=== PATIENT | female | born 1940 | race Caucasian/White ===

== ENCOUNTER → 2016-11-07 | Outpatient (RCR) ==
--- NOTE | 2016-10-09 16:00 | RS.OPPTEV2 ---
Date of Note: 10/09/16 Visit #: 1 Date of Evaluation: 10/09/16 Payer Source: MEDICARE Date of Onset/Injury/Change in Status: 08/04/16 Surgery Performed?: No Treatment Diagnosis: back pain History of Condition/Mechanism of Injury:: Patient states she has been having back pain since and had seen a chiropractor several times with very minimal relief. She was referred to a asset recovery specialist and then referred to PT. She states that Dr. Lehman gave her steroids which has helped significantly. She has just finished the steroids within a wk or so. Prior Level of Function.....Patient was independent with: ADL's, Self Care, Caregiving, Ambulation/Mobility, Community Integration/Access Functional Limitations: Sleep, ADL's, Lifting, Carrying, Sitting, Standing, Bending, Squatting, Ambulation, Community Access/Integration (stairs) Treatment Side (optional): Bilateral Medical History Medical History Comments:: arthritis, back pain, cerebrovascular disease, degeneration of intervertebral disc (site unspecified), depression, diverticulosis of colon, heart disease, high cholesterol, hypertension, hypothyroidism, neuropathy, osteoarthritis, restless leg syndrome, stress incontinence, thryoid nodule. Surgical History: Tonsillectomy Smoking Status: Never smoker Hx Home Medications: Please see medication list. Pain Assessment - Pain Description Pain Location: low back Pain Description: Chronic (Patient cannot describe her pain but states it just hurts.) Pain Description: Intermittent pain Current Pain Intensity: 5-6/10 Worst Pain Intensity: 10/10 Functional Outcome Measure Oswestry LBP: 30 (60% disability) - G Codes & Severity Modifier G Codes & Modifier: Mobility, Moving & Walking Around. Eval - CL. Goal - CK Source of G Code score: Oswestry LBP Scale Gait - Gait Pattern General Gait Pattern Observation: No Deviations/Normal General Muscle Strength: RLE 5/5 and LLE 4 - 4+/5 - ROM Lumbar Flexion: Hand reach to Mid-Thighs Sidebending to Left: Reach to Mid-thigh Sidebending to Right: Reach to Mid-thigh Palpation Palpation Findings: None/Normal Sensation - Sensation Sensation Description: Within Normal Limits Interventions - Exercise/Activities/Manual Therapy Exercises/Activities: NA Manual Therapy: NA - Charges Total Direct Minutes: 45 Total Treatment Time: 45 Procedures billed for this date of service:: PT Marthaal (Medium) Short Term Goals Goal #1: Patient independent and compliant with basic HEP. Goal to be met by: 10/24/16 Goal #2: Patient is able to negotiate steps with min difficulty Goal to be met by: 10/24/16 Goal #3: LLE strength 5/5 Goal to be met by: 10/24/16 Goal #4: Lumbar ROM WFLs w/o increased pain Goal to be met by: 10/24/16 Jail Goals Goal #1: Patient knows HEP and to continue exercises after D/C from therapy. Goal to be met by: 11/21/16 Goal #2: LBP intermittent in nature. Goal to be met by: 11/21/16 Goal #3: Patient is able to go shopping w/o lumbar fatigue. Goal to be met by: 11/21/16 Goal #4: Oswestry LBP Scale 20 Goal to be met by: 11/21/16 Plan - Treatment to be Provided Procedures: Therapeutic Exercises, Therapeutic Activity, Gait Training, Manual Therapy, Splinting/Taping, Patient Education Modalities: Electrical Stimulation, Ultrasound/Phonophoresis, Cryotherapy, Hot Packs - Treatment Plan Frequency: 2-3 X week Duration: 6 weeks ORDER # VISITS AND/OR THROUGH DATE: 11/21/2016 - Treatment Code (1) Back pain Qualifiers: Back pain location: low back pain Chronicity: chronic Back pain laterality: bilateral Sciatica presence: without sciatica Qualified Description: Chronic bilateral low back pain without sciatica Qualifier Code(s): (M54.5) Low back pain
--- NOTE | 2016-10-13 11:48 | RS.OPPTDN ---
Subjective Date of Note: 10/13/16 Visit #: 2 Date of Evaluation: 10/09/16 Payer Source: MEDICARE Treatment Diagnosis: back pain Current Subjective/complaints:: Patient points to just above the waist and slightly lower for area of pain. Reports bed mobility is difficult. She is hopeful treatment will help. Pain Assessment - Pain Description Pain Location: low back Pain Description: Chronic (Patient cannot describe her pain but states it just hurts.) Pain Description: Intermittent pain Current Pain Intensity: 5-6/10 - Treatment Modality: Electrical Stim Unattended Parameters/Method Applied: 4 large pads hivolt x 20 mins to the lumbar paraspinals @ 115-125 pk volts Patient Position: Supine - Heat/Cryotherapy Treatment: Hot Pack Interventions - Exercise/Activities/Manual Therapy Exercises/Activities: Began passive stretching of SKTC, HS, Piriformis, Lower trunk rotation. Bilaterally x 3. Patient education on diagnosis and HEP, body mechanics and positioning. Total minutes of Exercise: 12 Manual Therapy: NA HOME EXERCISE PROGRAM: self-mobilization of the patella medially, isometric hip adduction, HS stretch, and ITB stretch. Isometric hip adduction and bridging. - Charges Total Direct Minutes: 12 Total Treatment Time: 32 Procedures billed for this date of service:: hp, estim (un), ex Assessment: Patient presents with moderate LBP primarily at the waistline. She appeared to nicanor modality and therex well. She requires the need for assisted HS and SKTC stretching. Patient Education: Education of diagnosis, Body/Joint mechanics, Home Exercise Program, Home Safety, Activity Modification, Education of Plan of Care Patient demonstrates compliance with HEP?: Yes Short Term Goals Goal #1: Patient independent and compliant with basic HEP. Goal to be met by: 10/24/16 Goal #2: Patient is able to negotiate steps with min difficulty Goal to be met by: 10/24/16 Goal #3: LLE strength 5/5 Goal to be met by: 10/24/16 Goal #4: Lumbar ROM WFLs w/o increased pain Goal to be met by: 10/24/16 Plant Quality Manager Goals Goal #1: Patient knows HEP and to continue exercises after D/C from therapy. Goal to be met by: 11/21/16 Goal #2: LBP intermittent in nature. Goal to be met by: 11/21/16 Goal #3: Patient is able to go shopping w/o lumbar fatigue. Goal to be met by: 11/21/16 Goal #4: Oswestry LBP Scale 20 Goal to be met by: 11/21/16 Plan PLAN OF CARE EXPIRES ON:: 11/21/16 ORDER # VISITS AND/OR THROUGH DATE: 11/21/2016 PLAN: Continue Plan of Care
--- NOTE | 2016-10-15 10:20 | RS.OPPTDN ---
Subjective Date of Note: 10/15/16 Visit #: 3 Date of Evaluation: 10/09/16 Payer Source: MEDICARE Treatment Diagnosis: back pain Current Subjective/complaints:: Patient says she had some soreness after her last treatment she attributes to having to lift up and position for laying on hot pack. She says she is looking forward to today's session to reduce that soreness. Pain Assessment - Pain Description Pain Location: low back Pain Description: Chronic (Patient cannot describe her pain but states it just hurts.) Pain Description: Intermittent pain Current Pain Intensity: 5-6/10 - Treatment Modality: Electrical Stim Unattended Parameters/Method Applied: 4 large pads hivolt at the waistline @ 80-95 pk volts x 20 mins Patient Position: Supine - Heat/Cryotherapy Treatment: Hot Pack Interventions - Exercise/Activities/Manual Therapy Exercises/Activities: Continued with passive stretching of SKTC, HS, Piriformis , Lower trunk rotation. Bilaterally x 3. Began pillow squeezes and isometric hip abd x 10. Total minutes of Exercise: 14 Manual Therapy: NA HOME EXERCISE PROGRAM: self-mobilization of the patella medially, isometric hip adduction, HS stretch, and ITB stretch. Isometric hip adduction and bridging. - Charges Total Direct Minutes: 14 Total Treatment Time: 34 Procedures billed for this date of service:: hp, estim (un), ex Assessment: Patient had soreness to the low back and hips she felt was related to trying to position for hot pack last session. She had relief today from treatment. She had no difficulty performing trunk stability and should continue to progress. Patient Education: Education of diagnosis, Body/Joint mechanics, Home Exercise Program, Home Safety, Activity Modification, Education of Plan of Care Short Term Goals Goal #1: Patient independent and compliant with basic HEP. Goal to be met by: 10/24/16 Goal #2: Patient is able to negotiate steps with min difficulty Goal to be met by: 10/24/16 Goal #3: LLE strength 5/5 Goal to be met by: 10/24/16 Goal #4: Lumbar ROM WFLs w/o increased pain Goal to be met by: 10/24/16 Longterm Goals Goal #1: Patient knows HEP and to continue exercises after D/C from therapy. Goal to be met by: 11/21/16 Goal #2: LBP intermittent in nature. Goal to be met by: 11/21/16 Goal #3: Patient is able to go shopping w/o lumbar fatigue. Goal to be met by: 11/21/16 Goal #4: Oswestry LBP Scale 20 Goal to be met by: 11/21/16 Plan PLAN OF CARE EXPIRES ON:: 11/21/16 ORDER # VISITS AND/OR THROUGH DATE: 11/21/2016 PLAN: Progress Exercises
--- NOTE | 2016-10-20 10:54 | RS.OPPTDN ---
Subjective Date of Note: 10/20/16 Visit #: 4 Date of Evaluation: 10/09/16 Payer Source: MEDICARE Treatment Diagnosis: back pain Current Subjective/complaints:: Patient says she did not sleep well last night. She says she attributes it to time change. Says treatment seems to be helping her back. Pain Assessment - Pain Description Pain Location: low back Pain Description: Chronic (Patient cannot describe her pain but states it just hurts.) Pain Description: Intermittent pain Current Pain Intensity: 5-6/10 - Treatment Modality: Electrical Stim Unattended Parameters/Method Applied: 4 large pads hivolt @ 120-130 pk volts x 20 mins to lower lumbar paraspinals Patient Position: Supine - Heat/Cryotherapy Treatment: Hot Pack (mid to low back with estim) Interventions - Exercise/Activities/Manual Therapy Exercises/Activities: Continued with passive stretching of SKTC, HS, Piriformis , Lower trunk rotation. Bilaterally x 3. Continued with pillow squeezes and isometric hip abd x 10. Began isometric hip flexion and bridging. Total minutes of Exercise: 16 Manual Therapy: NA HOME EXERCISE PROGRAM: self-mobilization of the patella medially, isometric hip adduction, HS stretch, and ITB stretch. Isometric hip adduction and bridging. - Charges Total Direct Minutes: 16 Total Treatment Time: 36 Procedures billed for this date of service:: hp, estim (un), ex Assessment: Patient verbalizes slight improvement with back pain and appears to nicanor exercises in the department better. Short range bridge only due to increased range causes pain. Patient Education: Education of diagnosis, Body/Joint mechanics, Home Exercise Program, Home Safety, Activity Modification, Education of Plan of Care Patient demonstrates compliance with HEP?: Yes Short Term Goals Goal #1: Patient independent and compliant with basic HEP. Goal to be met by: 10/24/16 Progress towards Goal:: Progressing Comments:: as able Goal #2: Patient is able to negotiate steps with min difficulty Goal to be met by: 10/24/16 Goal #3: LLE strength 5/5 Goal to be met by: 10/24/16 Goal #4: Lumbar ROM WFLs w/o increased pain Goal to be met by: 10/24/16 Senior Care Goals Goal #1: Patient knows HEP and to continue exercises after D/C from therapy. Goal to be met by: 11/21/16 Goal #2: LBP intermittent in nature. Goal to be met by: 11/21/16 Goal #3: Patient is able to go shopping w/o lumbar fatigue. Goal to be met by: 11/21/16 Goal #4: Oswestry LBP Scale 20 Goal to be met by: 11/21/16 Plan PLAN OF CARE EXPIRES ON:: 11/21/16 ORDER # VISITS AND/OR THROUGH DATE: 11/21/2016 PLAN: Progress Exercises
--- NOTE | 2016-10-23 12:14 | RS.OPPTDN ---
Subjective Date of Note: 10/23/16 Visit #: 5 Date of Evaluation: 10/09/16 Payer Source: MEDICARE Treatment Diagnosis: back pain Current Subjective/complaints:: Patient says she cannot tell that pain is decreasing. She says she knows she has chronic back pain and will probably have to just deal with it. Pain Assessment - Pain Description Pain Location: low back Pain Description: Chronic (Patient cannot describe her pain but states it just hurts.) Pain Description: Intermittent pain Current Pain Intensity: 5-6/10 - Treatment Modality: Ultrasound Parameters/Method Applied: continuous @ 1.5 x 10 mins bilateral lumbar paraspinals Patient Position: Right Sidelying - Heat/Cryotherapy Treatment: Hot Pack (20 mins to the low and mid back in supine) Interventions - Exercise/Activities/Manual Therapy Exercises/Activities: Continued with passive stretching of SKTC, HS, Piriformis , Lower trunk rotation. Bilaterally x 3. Continued with pillow squeezes and isometric hip abd x 10. Continued with isometric hip flexion and bridging. Total minutes of Exercise: 16 Manual Therapy: NA HOME EXERCISE PROGRAM: self-mobilization of the patella medially, isometric hip adduction, HS stretch, and ITB stretch. Isometric hip adduction and bridging. - Charges Total Direct Minutes: 26 Total Treatment Time: 46 Procedures billed for this date of service:: hp, u/s, ex Assessment: Modified treatment from estim to u/s due to patient's continued c/ o. s. She demonstrates mod muscle guarding to the lumbar paraspinals. She has more pain with prolonged sitting than standing at this time. She appears to nicanor all therex well and shows improved HS length and less tenderness with piriformis stretching. Patient Education: Education of diagnosis, Body/Joint mechanics, Home Exercise Program, Home Safety, Activity Modification, Education of Plan of Care Patient demonstrates compliance with HEP?: Yes Short Term Goals Goal #1: Patient independent and compliant with basic HEP. Goal to be met by: 10/24/16 Progress towards Goal:: Progressing Goal #2: Patient is able to negotiate steps with min difficulty Goal to be met by: 10/24/16 Goal #3: LLE strength 5/5 Goal to be met by: 10/24/16 Goal #4: Lumbar ROM WFLs w/o increased pain Goal to be met by: 10/24/16 Shingle Grader Goals Goal #1: Patient knows HEP and to continue exercises after D/C from therapy. Goal to be met by: 11/21/16 Goal #2: LBP intermittent in nature. Goal to be met by: 11/21/16 Goal #3: Patient is able to go shopping w/o lumbar fatigue. Goal to be met by: 11/21/16 Goal #4: Oswestry LBP Scale 20 Goal to be met by: 11/21/16 Plan PLAN OF CARE EXPIRES ON:: 11/21/16 ORDER # VISITS AND/OR THROUGH DATE: 11/21/2016 PLAN: Continue Plan of Care (continue with u/s)
--- NOTE | 2016-10-27 11:02 | RS.OPPTDN ---
Subjective Date of Note: 10/27/16 Visit #: 7 Date of Evaluation: 10/09/16 Payer Source: MEDICARE Treatment Diagnosis: back pain Current Subjective/complaints:: Patient says she believes u/s is helping. She says her back pain has been less. Pain Assessment - Pain Description Pain Location: low back Pain Description: Chronic (Patient cannot describe her pain but states it just hurts.) Pain Description: Intermittent pain Current Pain Intensity: "less" - Treatment Modality: Ultrasound Parameters/Method Applied: continuous @ 1.5 w/cm2 x 12 mins to bilateral lumbar and lower thoracic paraspinals Patient Position: Right Sidelying - Heat/Cryotherapy Treatment: Hot Pack (mid to low back in supine x 20 mins) Interventions - Exercise/Activities/Manual Therapy Exercises/Activities: Continued with passive stretching of SKTC, HS, Piriformis , Lower trunk rotation. Bilaterally x 3. Continued with pillow squeezes and isometric hip abd 2 x 10. Continued with isometric hip flexion (increased to 2/ 10)and bridging x 10. Total minutes of Exercise: 16 Manual Therapy: NA HOME EXERCISE PROGRAM: self-mobilization of the patella medially, isometric hip adduction, HS stretch, and ITB stretch. Isometric hip adduction and bridging. - Charges Total Direct Minutes: 28 Total Treatment Time: 43 Procedures billed for this date of service:: hp, u/s, ex Assessment: Patient responding to u/s better than estim and verbalizing improved pain. She demo good flexibility now with all stretching and will now focus on trunk stability. Patient Education: Education of diagnosis, Body/Joint mechanics, Home Exercise Program, Home Safety, Activity Modification, Education of Plan of Care Patient demonstrates compliance with HEP?: Yes Short Term Goals Goal #1: Patient independent and compliant with basic HEP. Goal to be met by: 10/24/16 Progress towards Goal:: Progressing Goal #2: Patient is able to negotiate steps with min difficulty Goal to be met by: 10/24/16 Goal #3: LLE strength 5/5 Goal to be met by: 10/24/16 Goal #4: Lumbar ROM WFLs w/o increased pain Goal to be met by: 10/24/16 Zyglo Inspector Goals Goal #1: Patient knows HEP and to continue exercises after D/C from therapy. Goal to be met by: 11/21/16 Progress towards goal: Progressing Goal #2: LBP intermittent in nature. Goal to be met by: 11/21/16 Goal #3: Patient is able to go shopping w/o lumbar fatigue. Goal to be met by: 11/21/16 Goal #4: Oswestry LBP Scale 20 Goal to be met by: 11/21/16 Plan PLAN OF CARE EXPIRES ON:: 11/21/16 ORDER # VISITS AND/OR THROUGH DATE: 11/21/2016 PLAN: Progress Exercises
--- NOTE | 2016-10-27 11:05 | RS.OPPTDN ---
Subjective Date of Note: 10/24/16 Visit #: 6 Date of Evaluation: 10/09/16 Payer Source: MEDICARE Treatment Diagnosis: back pain Current Subjective/complaints:: Patient says her back pain is higher up her back now, but at the spine. She says she thinks the u/s helped more than the estim. Pain Assessment - Pain Description Pain Location: low back Pain Description: Chronic (Patient cannot describe her pain but states it just hurts.) Pain Description: Intermittent pain Current Pain Intensity: "less" - Treatment Modality: Ultrasound Parameters/Method Applied: continuous @ 1.5 w/cm2 x 10 mins to bilateral lumbar and lower thoracic paraspinals Patient Position: Right Sidelying - Heat/Cryotherapy Treatment: Hot Pack (mid to low back in supine x 20 mins) Interventions - Exercise/Activities/Manual Therapy Exercises/Activities: Continued with passive stretching of SKTC, HS, Piriformis , Lower trunk rotation. Bilaterally x 3. Continued with pillow squeezes and isometric hip abd 2 x 10. Continued with isometric hip flexion and bridging x 10. Total minutes of Exercise: 16 Manual Therapy: NA HOME EXERCISE PROGRAM: self-mobilization of the patella medially, isometric hip adduction, HS stretch, and ITB stretch. Isometric hip adduction and bridging. - Charges Total Direct Minutes: 26 Total Treatment Time: 41 Procedures billed for this date of service:: hp, u/s, ex Assessment: Patient doing well with reduced pain following u/s. She is able to nicanor stretching better, but does have discomfort with bridging. Patient Education: Education of diagnosis, Body/Joint mechanics, Home Exercise Program, Home Safety, Activity Modification, Education of Plan of Care Patient demonstrates compliance with HEP?: Yes Short Term Goals Goal #1: Patient independent and compliant with basic HEP. Goal to be met by: 10/24/16 Progress towards Goal:: Progressing Goal #2: Patient is able to negotiate steps with min difficulty Goal to be met by: 10/24/16 Progress towards Goal:: Progressing Goal #3: LLE strength 5/5 Goal to be met by: 10/24/16 Goal #4: Lumbar ROM WFLs w/o increased pain Goal to be met by: 10/24/16 Manager Ecommerce Goals Goal #1: Patient knows HEP and to continue exercises after D/C from therapy. Goal to be met by: 11/21/16 Goal #2: LBP intermittent in nature. Goal to be met by: 11/21/16 Goal #3: Patient is able to go shopping w/o lumbar fatigue. Goal to be met by: 11/21/16 Goal #4: Oswestry LBP Scale 20 Goal to be met by: 11/21/16 Plan PLAN OF CARE EXPIRES ON:: 11/21/16 ORDER # VISITS AND/OR THROUGH DATE: 11/21/2016 PLAN: Continue Plan of Care
--- NOTE | 2016-10-29 10:47 | RS.OPPTDN ---
Subjective Date of Note: 10/29/16 Visit #: 8 Date of Evaluation: 10/09/16 Payer Source: MEDICARE Treatment Diagnosis: back pain Current Subjective/complaints:: Patient says u/s has been helping quite well. She says she has been having less back pain lately. States she had a lot to do yesterday, but resting today. Pain Assessment - Pain Description Pain Location: low back Pain Description: Chronic (Patient cannot describe her pain but states it just hurts.) Pain Description: Intermittent pain Current Pain Intensity: "less" - Treatment Modality: Ultrasound Parameters/Method Applied: continuous @ 1.5 w/cm2 x 12 mins Treatment Area: bilateral lower thoracic and lumbar paraspinals Patient Position: Right Sidelying - Heat/Cryotherapy Treatment: Hot Pack (mid to low back in supine x 20 mins) Interventions - Exercise/Activities/Manual Therapy Exercises/Activities: Continued with passive stretching of SKTC, HS, Piriformis , Lower trunk rotation. Added Heel cord stretching x 3. Bilaterally x 3. Continued with pillow squeezes and isometric hip abd 2 x 15. Continued with isometric hip flexion x 10. Added pelvic tilts, but omitted bridging due to discomfort. Total minutes of Exercise: 20 Manual Therapy: NA HOME EXERCISE PROGRAM: self-mobilization of the patella medially, isometric hip adduction, HS stretch, and ITB stretch. Isometric hip adduction and bridging. - Charges Total Direct Minutes: 32 Total Treatment Time: 52 Procedures billed for this date of service:: hp, u/s, ex Assessment: Patient responding to u/s well with ability to perform more beet end supervisor with less irritation and fatigue. Patient Education: Education of diagnosis, Body/Joint mechanics, Home Exercise Program, Home Safety, Activity Modification, Education of Plan of Care Patient demonstrates compliance with HEP?: Yes Short Term Goals Goal #1: Patient independent and compliant with basic HEP. Goal to be met by: 10/24/16 Progress towards Goal:: Progressing Goal #2: Patient is able to negotiate steps with min difficulty Goal to be met by: 10/24/16 Progress towards Goal:: Progressing Goal #3: LLE strength 5/5 Goal to be met by: 10/24/16 Progress towards Goal:: Progressing Goal #4: Lumbar ROM WFLs w/o increased pain Goal to be met by: 10/24/16 Progress towards Goal:: Progressing Hotel General Manager Goals Goal #1: Patient knows HEP and to continue exercises after D/C from therapy. Goal to be met by: 11/21/16 Goal #2: LBP intermittent in nature. Goal to be met by: 11/21/16 Goal #3: Patient is able to go shopping w/o lumbar fatigue. Goal to be met by: 11/21/16 Goal #4: Oswestry LBP Scale 20 Goal to be met by: 11/21/16 Plan PLAN OF CARE EXPIRES ON:: 11/21/16 ORDER # VISITS AND/OR THROUGH DATE: 11/21/2016 PLAN: Progress Exercises
--- NOTE | 2016-11-03 11:06 | RS.OPPTDN ---
Subjective Date of Note: 10/31/16 Visit #: 9 Date of Evaluation: 10/09/16 Payer Source: MEDICARE Treatment Diagnosis: back pain Current Subjective/complaints:: Patient states she did increased activity over the weekend and was a little sore, but now only has slight soreness to the low back. She expresses feeling much relief following u/s. Pain Assessment - Pain Description Pain Location: low back Pain Description: Chronic (Patient cannot describe her pain but states it just hurts.) Pain Description: Intermittent pain Current Pain Intensity: "less" - Treatment Modality: Ultrasound Parameters/Method Applied: continuous @ 1.5 w/cm2 x 10 mins to bilateral lumbar paraspinals Patient Position: Right Sidelying - Heat/Cryotherapy Treatment: Hot Pack ( mid to low back in supine x 20 mins) Interventions - Exercise/Activities/Manual Therapy Exercises/Activities: Continued with passive stretching of SKTC, HS, Piriformis , Lower trunk rotation. Added Heel cord stretching x 3. Bilaterally x 3. Continued with pillow squeezes and isometric hip abd 2 x 15. Continued with isometric hip flexion x 10. Continued with pelvic tilts 2/10. SLR 2/8 bilaterally. Total minutes of Exercise: 17 Manual Therapy: NA HOME EXERCISE PROGRAM: self-mobilization of the patella medially, isometric hip adduction, HS stretch, and ITB stretch. Isometric hip adduction and bridging. - Objective Findings Observations,measurements,etc.: Oswestry LBP based on presentation and reports: 25 or 50% impairment - Charges Total Direct Minutes: 27 Total Treatment Time: 47 Procedures billed for this date of service:: hp, u/s, ex Assessment: Patient demonstrating norm HS length at this point and is ncianor progressive trunk stability. She does have difficulty nicanor bridging, so it continues to be omitted and performing more pelvic tilts. Patient Education: Education of diagnosis, Body/Joint mechanics, Home Exercise Program, Home Safety, Activity Modification, Education of Plan of Care Patient demonstrates compliance with HEP?: Yes Short Term Goals Goal #1: Patient independent and compliant with basic HEP. Goal to be met by: 10/24/16 Progress towards Goal:: Progressing Goal #2: Patient is able to negotiate steps with min difficulty Goal to be met by: 10/24/16 Progress towards Goal:: Progressing Goal #3: LLE strength 5/5 Goal to be met by: 10/24/16 Progress towards Goal:: Progressing Goal #4: Lumbar ROM WFLs w/o increased pain Goal to be met by: 10/24/16 Progress towards Goal:: Progressing Guest Relations Executive Goals Goal #1: Patient knows HEP and to continue exercises after D/C from therapy. Goal to be met by: 11/21/16 Goal #2: LBP intermittent in nature. Goal to be met by: 11/21/16 Goal #3: Patient is able to go shopping w/o lumbar fatigue. Goal to be met by: 11/21/16 Goal #4: Oswestry LBP Scale 20 Goal to be met by: 11/21/16 Plan PLAN OF CARE EXPIRES ON:: 11/21/16 ORDER # VISITS AND/OR THROUGH DATE: 11/21/2016 PLAN: Progress Exercises (continue x 2 more sessions per order)
--- NOTE | 2016-11-03 13:45 | RS.OPPTDN ---
Subjective Date of Note: 11/03/16 Visit #: 10 Date of Evaluation: 10/09/16 Payer Source: MEDICARE Treatment Diagnosis: back pain Current Subjective/complaints:: Patient says she is pleased at how therapy has been helping her back. She notices improved strength and ease with getting up off of the bed in the department and exercises are getting easier. Pain Assessment - Pain Description Pain Location: low back Pain Description: Chronic (Patient cannot describe her pain but states it just hurts.) Pain Description: Intermittent pain Current Pain Intensity: "less" - Treatment Modality: Ultrasound Parameters/Method Applied: continuous @ 1.5 w/cm2 x 10 mins to bilateral lumbar paraspinals Patient Position: Right Sidelying - Heat/Cryotherapy Treatment: Hot Pack (mid to low back in supine) Comments:: 20 mins Interventions - Exercise/Activities/Manual Therapy Exercises/Activities: Continued with passive stretching of SKTC, HS, Piriformis , Lower trunk rotation. Added Heel cord stretching x 3. Bilaterally x 3. Continued with pillow squeezes and isometric hip abd 2 x 15. Continued with isometric hip flexion 2 x 10. Continued with pelvic tilts 2/10. SLR 2/8 bilaterally. Omitted Bridging. Total minutes of Exercise: 17 Manual Therapy: NA HOME EXERCISE PROGRAM: self-mobilization of the patella medially, isometric hip adduction, HS stretch, and ITB stretch. Isometric hip adduction and bridging. - Objective Findings Observations,measurements,etc.: Oswestry LBP based on presentation and reports: 25 or 50% impairment - Charges Total Direct Minutes: 27 Total Treatment Time: 47 Procedures billed for this date of service:: hp, u/s, ex Assessment: Improved Oswestry Scale today for the 10th visit today meeting her goal. Patient Education: Education of diagnosis, Body/Joint mechanics, Home Exercise Program, Home Safety, Activity Modification, Education of Plan of Care Patient demonstrates compliance with HEP?: Yes Short Term Goals Goal #1: Patient independent and compliant with basic HEP. Goal to be met by: 10/24/16 Progress towards Goal:: Met Goal #2: Patient is able to negotiate steps with min difficulty Goal to be met by: 10/24/16 Progress towards Goal:: Met Goal #3: LLE strength 5/5 Goal to be met by: 10/24/16 Progress towards Goal:: Progressing Goal #4: Lumbar ROM WFLs w/o increased pain Goal to be met by: 10/24/16 Progress towards Goal:: Progressing Knowledge Management Consultant Goals Goal #1: Patient knows HEP and to continue exercises after D/C from therapy. Goal to be met by: 11/21/16 Goal #2: LBP intermittent in nature. Goal to be met by: 11/21/16 Goal #3: Patient is able to go shopping w/o lumbar fatigue. Goal to be met by: 11/21/16 Goal #4: Oswestry LBP Scale 20 Goal to be met by: 11/21/16 Plan PLAN OF CARE EXPIRES ON:: 11/21/16 ORDER # VISITS AND/OR THROUGH DATE: 11/21/2016 PLAN: Progress Exercises (continue this week, then plan for d/c with encouragement to consistently perform HEP)
--- NOTE | 2016-11-05 15:19 | RS.OPPTDN ---
Subjective Date of Note: 11/05/16 Visit #: 11 Date of Evaluation: 10/09/16 Payer Source: MEDICARE Treatment Diagnosis: back pain Current Subjective/complaints:: Patient c/o being tired today. Says she is able to see improved strength to her legs with walking up/down her 4 steps. Pain Assessment - Pain Description Pain Location: low back. "tired" Pain Description: Chronic (Patient cannot describe her pain but states it just hurts.) Pain Description: Intermittent pain Current Pain Intensity: "less" - Treatment Modality: Ultrasound Parameters/Method Applied: continuous @ 1.5 w/cm2 x 12 mins to bilateral lumbar paraspinals and lower thoracic paraspinals Patient Position: Supine - Heat/Cryotherapy Treatment: Hot Pack (mid to low back in supine x 20 mins) Interventions - Exercise/Activities/Manual Therapy Exercises/Activities: Continued with trunk stability of pillow squeezes and isometric hip abd 2 x 15. Continued with isometric hip flexion 2 x 10. QS 2x10. Continued with pelvic tilts 2/10. SLR 2/8 bilaterally. Omitted Bridging. Total minutes of Exercise: 15 Manual Therapy: NA HOME EXERCISE PROGRAM: self-mobilization of the patella medially, isometric hip adduction, HS stretch, and ITB stretch. Isometric hip adduction and bridging. - Charges Total Direct Minutes: 27 Total Treatment Time: 47 Procedures billed for this date of service:: hp u/s, ex Assessment: Patient verbalizing improved ability to ascend/descend steps and general back pain, but remains overall fatigued. Patient's daughter had surgery yesterday and spent much time at the hospital. Patient Education: Education of diagnosis, Body/Joint mechanics, Home Exercise Program, Home Safety, Activity Modification, Education of Plan of Care Patient demonstrates compliance with HEP?: Yes Short Term Goals Goal #1: Patient independent and compliant with basic HEP. Goal to be met by: 10/24/16 Progress towards Goal:: Met Goal #2: Patient is able to negotiate steps with min difficulty Goal to be met by: 10/24/16 Progress towards Goal:: Met Goal #3: LLE strength 5/5 Goal to be met by: 10/24/16 Progress towards Goal:: Progressing Goal #4: Lumbar ROM WFLs w/o increased pain Goal to be met by: 10/24/16 Progress towards Goal:: Progressing Finished Metal Repairer Goals Goal #1: Patient knows HEP and to continue exercises after D/C from therapy. Goal to be met by: 11/21/16 Progress towards goal: Progressing Goal #2: LBP intermittent in nature. Goal to be met by: 11/21/16 Progress towards goal: Progressing Goal #3: Patient is able to go shopping w/o lumbar fatigue. Goal to be met by: 11/21/16 Goal #4: Oswestry LBP Scale 20 Goal to be met by: 11/21/16 Plan PLAN OF CARE EXPIRES ON:: 11/21/16 ORDER # VISITS AND/OR THROUGH DATE: 11/21/2016 PLAN: Progress Exercises (continue one more session per order)
--- NOTE | 2016-11-06 10:32 | RS.PTSUM ---
Progress Note/Summary Date of Note: 11/06/16 Date of Evaluation: 10/09/16 Number of Visits: 10 Reporting Period for this Progress Note: 10/09/16 through 11/03/16 Current Complaints/Gains: Patient reports mild LBP. She does often state her pain is chronic, but she states therapy treatment has helped her greatly. She reports less stiffness with exercises and states she is performing her exercises at home. Objective Measurements/Presentation: Demonstrates optimal HS and piriforms length. She has been able to progress stability exercises. She has shown difficulty with bridging. G Codes: Mobility current CK. Mobility goal CK Source of G Code Score: 50% on Oswestry LBP - Short Term Goals Goal #1: Patient independent and compliant with basic HEP. Goal to be met by: 10/24/16 Progress towards Goal:: Met Goal #2: Patient is able to negotiate steps with min difficulty Goal to be met by: 10/24/16 Progress towards Goal:: Met Goal #3: LLE strength 5/5 Goal to be met by: 10/24/16 Progress towards Goal:: Progressing Goal #4: Lumbar ROM WFLs w/o increased pain Goal to be met by: 10/24/16 Progress towards Goal:: Progressing - Assisted Goals Goal #1: Patient knows HEP and to continue exercises after D/C from therapy. Goal to be met by: 11/21/16 Progress towards goal: Progressing Goal #2: LBP intermittent in nature. Goal to be met by: 11/21/16 Progress towards goal: Progressing Goal #3: Patient is able to go shopping w/o lumbar fatigue. Goal to be met by: 11/21/16 Progress towards goal: Progressing Goal #4: Oswestry LBP Scale 20 Goal to be met by: 11/21/16 - Assessment Summary: Patient has made progress towards goals., Patient demonstrates potential to gain increased function with therapy - Plan Plan: Continue Plan of Care PLAN OF CARE EXPIRES ON:: 11/21/16 ORDER # VISITS AND/OR THROUGH DATE: 11/21/2016
--- NOTE | 2016-11-07 15:20 | RS.OPPTDN ---
Subjective Date of Note: 11/07/16 Visit #: 12 Date of Evaluation: 10/09/16 Payer Source: MEDICARE Treatment Diagnosis: back pain Current Subjective/complaints:: Patient says she is pleased at how well she is feeling and believes she will get better with performing her exercises more at home. Pain Assessment - Pain Description Pain Location: low back. "tired" Pain Description: Chronic (Patient cannot describe her pain but states it just hurts.) Pain Description: Intermittent pain Current Pain Intensity: "less" - Treatment Modality: Ultrasound Parameters/Method Applied: continuous @ 1.5 w/cm2 x 10 mins to the L lower thoracic and lumbar paraspinals Patient Position: Right Sidelying - Heat/Cryotherapy Treatment: Hot Pack (20 mins mid to low back in supine) Interventions - Exercise/Activities/Manual Therapy Exercises/Activities: Continued with trunk stability of pillow squeezes and isometric hip abd 2 x 15. Continued with isometric hip flexion 2 x 10. QS 2x10. Alternate LE lift with 2# each leg, SAQ 2#. Continued with pelvic tilts 2/10. SLR 2/8 bilaterally. Total minutes of Exercise: 22 Manual Therapy: NA HOME EXERCISE PROGRAM: self-mobilization of the patella medially, isometric hip adduction, HS stretch, and ITB stretch. Isometric hip adduction and bridging. - Charges Total Direct Minutes: 32 Total Treatment Time: 52 Procedures billed for this date of service:: hp, u/s, ex Assessment: Patient has made acceptable progress with reducing low back pain. She is aware she needs to be consistent with HEP and may simulate our sessions with heating pad and stretching at home while progressing with trunk stability. She has met her goal per Oswestry Scale and admits improved sleep pattern and rising from bed/chair. Patient Education: Education of diagnosis, Body/Joint mechanics, Home Exercise Program, Home Safety, Activity Modification, Education of Plan of Care Patient demonstrates compliance with HEP?: Yes Short Term Goals Goal #1: Patient independent and compliant with basic HEP. Goal to be met by: 10/24/16 Progress towards Goal:: Met Goal #2: Patient is able to negotiate steps with min difficulty Goal to be met by: 10/24/16 Progress towards Goal:: Met Goal #3: LLE strength 5/5 Goal to be met by: 10/24/16 Progress towards Goal:: Progressing Goal #4: Lumbar ROM WFLs w/o increased pain Goal to be met by: 10/24/16 Progress towards Goal:: Progressing Correction Goals Goal #1: Patient knows HEP and to continue exercises after D/C from therapy. Goal to be met by: 11/21/16 Progress towards goal: Met Goal #2: LBP intermittent in nature. Goal to be met by: 11/21/16 Progress towards goal: Met Goal #3: Patient is able to go shopping w/o lumbar fatigue. Goal to be met by: 11/21/16 Progress towards goal: Progressing Goal #4: Oswestry LBP Scale 20 Goal to be met by: 11/21/16 Progress towards goal: Partially Met (did not meet the score of 20, but 25 and met the goal of CK category) Plan PLAN OF CARE EXPIRES ON:: 11/21/16 ORDER # VISITS AND/OR THROUGH DATE: 11/21/2016 PLAN: Plan for Discharge
--- NOTE | 2016-11-28 10:17 | RS.QUICKDC ---
Discharge from PT Date of Discharge: 11/28/16 Number of Visits: 12 Reason for Discharge: Patient had completed original order for PT x 12 visits using moist heat, u/s, and therex including passive stretching and progressive trunk stability. She reported less back pain and increased strength to the LE' s as well as noticable improvement with ambulation. It was recommended upon 10th visit by our PT to complete final 2 sessions and perform HEP due to progress. See daily notes for specific treatment.
== END ==
PROVIDERS: ATTEND Orthopaedic Surgery Orthopaedic Surgery of the Spine
DX: M54.5 Low back pain (principal)

== ENCOUNTER → 2017-02-28 | Outpatient (CLI) | LOC: AMBL 14:44 | PROVIDERS: ATTEND Emergency Medicine | DX: R42 Dizziness and giddiness (principal); R11.2 Nausea with vomiting, unspecified; Z86.73 Personal history of transient ischemic attack (TIA), and cerebral infarction without residual deficits ==

== ENCOUNTER 2017-12-07 09:15 | Outpatient (RCR) ==
--- NOTE | 2017-11-17 08:26 | RS.OPPTEV2 ---
Date of Note: 11/16/17 Visit #: 1 Date of Evaluation: 11/16/17 Payer Source: MEDICARE Date of Onset/Injury/Change in Status: 08/18/17 Surgery Performed?: No Treatment Diagnosis: fx fibula, L ankle pain History of Condition/Mechanism of Injury:: pt states that problem began with fall on front porch injuring L ankle. Prior Level of Function.....Patient was independent with: ADL's, Self Care, Caregiving, Ambulation/Mobility, Community Integration/Access Functional Limitations: Sleep, ADL's, Lifting, Carrying, Standing, Bending, Squatting, Ambulation, Community Access/Integration (stairs) Current Subjective/complaints:: pt states L ankle continues to swell. States that she had been wearing a boot and MD 2 weeks ago changed her over to an ankle support brace. pt states that the brace will not fit inside her shoe however is more comfortable than the boot. Treatment Side (optional): Left Medical History Medical History: Hypertension, CVA/TIA, Arthritis Medical History Comments:: back pain, degeneration of intervertebral disc (site unspecified), depression, diverticulosis of colon, heart disease, high cholesterol, hypothyroidism, neuropathy, restless leg syndrome, stress incontinence, thryoid nodule. Surgical History: Tonsillectomy Smoking Status: Never smoker Hx Home Medications: Please see medication list. Patient's Goals: pt goal is to decrease pain Pain Assessment - Pain Description Pain Location: L ankle Pain Description: Aching Current Pain Intensity: 4/10 Functional Outcome Measure LE Functional Scale: 21 (74%) - G Codes & Severity Modifier G Codes & Modifier: mobility current CL. mobility goal CJ Source of G Code score: LE functional scale Observation - Observation Posture: Forward Head, Rounded Shoulders Handedness: Right Girth Measurement Lower: L ankle 22.5 cm R ankle 20.5cm. forefoot 20.7cm forefoot 20.4cm. 10 cm above ankle 22cm 10 cm above ankle 22cm Gait - Gait Pattern General Gait Pattern Observation: Antalgic Gait Gait Comments: pt amb with antalgic gait pattern with decreased stance time on LLE General Range of Motion: BUE wfL's. BLE hip /knee WFL's Muscle Strength: BUE 4+/5,. BLE except ankle 4+/5 - Left Ankle ROM Left DF with Knee extension: -8 Left Plantar Flexion: 24 Left Eversion: 18 Left Inversion: 24 Left Ankle/Foot ROM Limitations: Soft Tissue Tightness, Muscle Weakness, Pain - Right Ankle ROM Right DF with Knee extension: 6 Right Plantarflexion: 60 Right Eversion: 32 Right Inversion: 22 Right Ankle/Foot ROM Limitations: Soft Tissue Tightness, Muscle Weakness - Left Ankle Strength Left Dorsiflexion: 3- Fair- Left Plantar flexion: 3- Fair- Left Eversion: 3 Fair Left Inversion: 3 Fair - Right Ankle Strength Right Dorsiflexion: 3+ Fair+ Right Plantarflexion: 4 Good Right Eversion: 4 Good Right Inversion: 4 Good Palpation Palpation Findings: Tenderness Comments:: tenderness noted to palpation L proximal, lateral ankle Sensation - Sensation Right Upper Extremity: Intact/Normal Left Upper Extremity: Intact/Normal Right Lower Extremity: Intact/Normal Left Lower Extremity: Intact/Normal Balance - Sitting Balance Static Sitting Balance: Normal Dynamic Sitting Balance: Normal - Standing Balance Static Standing Balance: Good Dynamic Standing Balance: Good - Comments Balance Assessment Comments: pt with no LOB with gait, or with min challenges to balance. - Heat/Cryotherapy Treatment: Cryotherapy Comments:: L ankle Interventions - Exercise/Activities/Manual Therapy Exercises/Activities: pt performed DF, PF, inversion, eversion with L ankle with red theraband x 10 reps. Manual Therapy: NA HOME EXERCISE PROGRAM: pt given written HEP including: DF, PF, Inversion, Eversion with red theraband, ankle alphabet, towel curls and instructed to Ice L ankle - Charges Timed Code Treatment Minutes: 45 Total Treatment Time: 58 Procedures billed for this date of service:: eval low, cp EVALUATION COMPLEXITY LEVEL EVALUATION COMPLEXITY LEVEL: HISTORY: Medium (htn, cva, oa, L fibular fx), EXAM OF BODY SYSTEMS: Low (pain, edema, strength, ROM, ), CLINICAL PRESENTATION: Low (stable), CLINICAL DECISION MAKING: Low Assessment Assessment: pt presents with decreased ROM L ankle, decreased strength, edema, pain. pt presents with antalgic gait. Feel pt would benefit from skilled PT for therex for LE strengthening, ROM, pt education, to improve gait pattern and functional mobility Patient Education: Home Exercise Program, Education of Plan of Care Rehab Potential: Good Short Term Goals Goal #1: pt rate pain <4 with activity Goal to be met by: 12/07/17 Goal #2: Improved L ankle ROM DF to neutral, PF 38, Inversion 20, [id number] Goal to be met by: 12/07/17 Goal #3: pt amb in dept with improved heel strike, decreased antalgic gait pattern. Goal to be met by: 12/07/17 Goal #4: Decreased edema L ankle equal to R LE Goal to be met by: 12/07/17 Vice President Mission Integration Goals Goal #1: Independent with HEP Goal to be met by: 12/28/17 Goal #2: pt rate pain <2 with activity Goal to be met by: 12/28/17 Goal #3: pt amb community distances with no LOB with decreased antalgic gait Goal to be met by: 12/28/17 Goal #4: Improved LE functional scale 40 Goal to be met by: 12/28/17 Plan - Treatment to be Provided Procedures: Therapeutic Exercises, Therapeutic Activity, Gait Training, Manual Therapy, Splinting/Taping, Patient Education Modalities: Electrical Stimulation, Cryotherapy, Hot Packs - Treatment Plan Frequency: 3 X week Duration: 6 weeks ORDER # VISITS AND/OR THROUGH DATE: 12/28/17 - Treatment Code (1) Other fracture of upper and lower end of left fibula, subsequent encounter for closed fracture with routine healing Code(s): S82.832D - OTH FX UPR & LOW END L FIBULA, SUBS FOR CLOS FX W ROUTN HEAL (2) Left ankle pain Code(s): M25.572 - PAIN IN LEFT ANKLE AND JOINTS OF LEFT FOOT Qualifiers: Chronicity: chronic Qualified Code(s): M25.572 - Pain in left ankle and joints of left foot; G89.29 - Other chronic pain; G89.29 - Other chronic pain (3) Effusion of ankle joint, left Code(s): M25.472 - EFFUSION, LEFT ANKLE (4) Joint stiffness of ankle or foot Code(s): [id number] -
--- NOTE | 2017-11-18 11:50 | RS.OPPTDN ---
Subjective Date of Note: 11/18/17 Visit #: 2 Date of Evaluation: 11/16/17 Payer Source: MEDICARE Treatment Diagnosis: fx fibula, L ankle pain Current Subjective/complaints:: Patient says feels she has a little more flexibility since eval. She says she has been using ice and working on HEP. Pain Assessment - Pain Description Pain Location: Does not rate, but says pain seems to be reducing - Heat/Cryotherapy Treatment: Cryotherapy (15 mins to the L foot/ankle in elevated position after therex) Interventions - Exercise/Activities/Manual Therapy Exercises/Activities: Patient receives PROM for the L ankle all positions. Began manual isometrics 2x5 all dir. Continued with red tband all dir x 10 reps. Patient sits at EOB to work on True [employer] board multiple reps mainly focusing on DF/PF. Patient is performing HEP consistently. Total minutes of Exercise: 25 Manual Therapy: NA HOME EXERCISE PROGRAM: pt given written HEP including: DF, PF, Inversion, Eversion with red theraband, ankle alphabet, towel curls and instructed to Ice L ankle - Charges Timed Code Treatment Minutes: 25 Total Treatment Time: 40 Procedures billed for this date of service:: cp, ex2 Assessment: Patient admits improved ROM and better ease with all therex and HEP today. She demo good resistance with all isometrics today. She should benefit from continuing therapy for modalities if needed, but focus on therex to increase ROM and improve strength and stability of the L ankle joint. Patient Education: Education of diagnosis, Body/Joint mechanics, Home Exercise Program, Education of Plan of Care Patient demonstrates compliance with HEP?: Yes Short Term Goals Goal #1: pt rate pain <4 with activity Goal to be met by: 12/07/17 Progress towards Goal:: Progressing Goal #2: Improved L ankle ROM DF to neutral, PF 38, Inversion 20, [id number] Goal to be met by: 12/07/17 Progress towards Goal:: Progressing Goal #3: pt amb in dept with improved heel strike, decreased antalgic gait pattern. Goal to be met by: 12/07/17 Progress towards Goal:: Progressing Goal #4: Decreased edema L ankle equal to R LE Goal to be met by: 12/07/17 Prison Goals Goal #1: Independent with HEP Goal to be met by: 12/28/17 Goal #2: pt rate pain <2 with activity Goal to be met by: 12/28/17 Goal #3: pt amb community distances with no LOB with decreased antalgic gait Goal to be met by: 12/28/17 Goal #4: Improved LE functional scale 40 Goal to be met by: 12/28/17 Plan PLAN OF CARE EXPIRES ON:: 12/28/17 ORDER # VISITS AND/OR THROUGH DATE: 12/28/17 PLAN: Patient to continue 2-3 times per week for mobility and strength to the L ankle progressing to gait improvement.
--- NOTE | 2017-11-23 16:15 | RS.OPPTDN ---
Subjective Date of Note: 11/23/17 Visit #: 4 Date of Evaluation: 11/16/17 Payer Source: MEDICARE Treatment Diagnosis: fx fibula, L ankle pain Current Subjective/complaints:: Patient says the cold air has stiffened her ankle, but still seems to be improving. Reports not feeling well today and has been also taking care of her who has been down over the weekend. - Heat/Cryotherapy Treatment: Hot Pack (surrounding the L ankle in supine) Interventions - Exercise/Activities/Manual Therapy Exercises/Activities: Patient receives PROM for the L ankle all positions. Continued with manual isometrics 2x5 all dir. Continued with red tband all dir 2x 10 reps. Patient sits at EOB to work on wobble board multiple reps mainly focusing on DF/PF. Forward step board with instruction for proper sequencing x 5. Ramírez air pad for weight shift A/P and lateral x 10. Minisquat on level floor x 5. Patient is performing HEP consistently. Total minutes of Exercise: 26 Manual Therapy: NA HOME EXERCISE PROGRAM: pt given written HEP including: DF, PF, Inversion, Eversion with red theraband, ankle alphabet, towel curls and instructed to Ice L ankle - Charges Timed Code Treatment Minutes: 26 Total Treatment Time: 41 Procedures billed for this date of service:: hp, ex2 Assessment: Patient had difficulty stepping up on step board and altered surface today as she had 3-4 LOB and required assistance to maintain or correct bal. DF has increased by ~4-5 degrees since eval. Patient is compliant with HEP at this time and continues to progress with all therex otherwise. Patient Education: Home Safety, Education of Plan of Care Patient demonstrates compliance with HEP?: Yes Short Term Goals Goal #1: pt rate pain <4 with activity Goal to be met by: 12/07/17 Progress towards Goal:: Progressing Goal #2: Improved L ankle ROM DF to neutral, PF 38, Inversion 20, [id number] Goal to be met by: 12/07/17 Progress towards Goal:: Progressing Goal #3: pt amb in dept with improved heel strike, decreased antalgic gait pattern. Goal to be met by: 12/07/17 Progress towards Goal:: Progressing Goal #4: Decreased edema L ankle equal to R LE Goal to be met by: 12/07/17 Pc Support Specialist Goals Goal #1: Independent with HEP Goal to be met by: 12/28/17 Goal #2: pt rate pain <2 with activity Goal to be met by: 12/28/17 Goal #3: pt amb community distances with no LOB with decreased antalgic gait Goal to be met by: 12/28/17 Goal #4: Improved LE functional scale 40 Goal to be met by: 12/28/17 Plan PLAN OF CARE EXPIRES ON:: 12/28/17 ORDER # VISITS AND/OR THROUGH DATE: 12/28/17 PLAN: Patient to continue with therex to strengthen L LE and provide more stable bal/gt.
--- NOTE | 2017-11-23 16:21 | RS.OPPTDN ---
Subjective Date of Note: 11/20/17 Visit #: 3 Date of Evaluation: 11/16/17 Payer Source: MEDICARE Treatment Diagnosis: fx fibula, L ankle pain Current Subjective/complaints:: Patient continues to work on HEP and pleased with progress of reduced pain and strength nicanor increasing. Interventions - Exercise/Activities/Manual Therapy Exercises/Activities: Patient receives PROM for the L ankle all positions. Began manual isometrics 2x5 all dir. Continued with red tband all dir x 10 reps. Patient sits at EOB to work on [employer] multiple reps mainly focusing on DF/PF. Mrs. Nation works on side stepping at railing, minisquats, and forward step ups x 10. She stands and weight shifts A/P and laterally on parsons air pad. Patient is performing HEP consistently. Total minutes of Exercise: 30 Manual Therapy: NA HOME EXERCISE PROGRAM: pt given written HEP including: DF, PF, Inversion, Eversion with red theraband, ankle alphabet, towel curls and instructed to Ice L ankle - Charges Timed Code Treatment Minutes: 30 Total Treatment Time: 30 Procedures billed for this date of service:: ex2 Patient Education: Home Exercise Program, Education of Plan of Care Patient demonstrates compliance with HEP?: Yes Short Term Goals Goal #1: pt rate pain <4 with activity Goal to be met by: 12/07/17 Progress towards Goal:: Progressing Goal #2: Improved L ankle ROM DF to neutral, PF 38, Inversion 20, [id number] Goal to be met by: 12/07/17 Progress towards Goal:: Progressing Goal #3: pt amb in dept with improved heel strike, decreased antalgic gait pattern. Goal to be met by: 12/07/17 Progress towards Goal:: Progressing Goal #4: Decreased edema L ankle equal to R LE Goal to be met by: 12/07/17 Buying Agent Goals Goal #1: Independent with HEP Goal to be met by: 12/28/17 Goal #2: pt rate pain <2 with activity Goal to be met by: 12/28/17 Goal #3: pt amb community distances with no LOB with decreased antalgic gait Goal to be met by: 12/28/17 Goal #4: Improved LE functional scale 40 Goal to be met by: 12/28/17 Plan PLAN OF CARE EXPIRES ON:: 12/28/17 ORDER # VISITS AND/OR THROUGH DATE: 12/28/17 PLAN: Patient to continue for progressive therex.
--- NOTE | 2017-11-25 13:35 | RS.OPPTDN ---
Subjective Date of Note: 11/25/17 Visit #: 5 Date of Evaluation: 11/16/17 Payer Source: MEDICARE Treatment Diagnosis: fx fibula, L ankle pain Current Subjective/complaints:: Patient says she is feeling better, less congested, thus bal is better. She reports less pain and improved ability to perform therex at home. - Heat/Cryotherapy Treatment: Hot Pack (surrounding the L foot x 15 mins) Interventions - Exercise/Activities/Manual Therapy Exercises/Activities: Patient receives PROM for the L ankle all positions. Continued with manual isometrics 2x5 all dir. Continued with red tband all dir x 10 reps. Patient sits at EOB to work on [employer] board multiple reps mainly focusing on DF/PF. Mrs. Nation works on side stepping at railing, minisquats, heel raises, and forward step ups x 10. Bal is much better today as congestion and allergies have improved (while performing step ups). Total minutes of Exercise: 25 Manual Therapy: NA HOME EXERCISE PROGRAM: pt given written HEP including: DF, PF, Inversion, Eversion with red theraband, ankle alphabet, towel curls and instructed to Ice L ankle - Charges Timed Code Treatment Minutes: 25 Total Treatment Time: 40 Procedures billed for this date of service:: ex2, hp Assessment: Patient having less L ankle pain and improved nicanor to progressive exercises. She maintains use of lace up brace support and demo improved bal with all therex today. Patient Education: Body/Joint mechanics, Home Safety, Education of Plan of Care Patient demonstrates compliance with HEP?: Yes Short Term Goals Goal #1: pt rate pain <4 with activity Goal to be met by: 12/07/17 Progress towards Goal:: Progressing Goal #2: Improved L ankle ROM DF to neutral, PF 38, Inversion 20, [id number] Goal to be met by: 12/07/17 Progress towards Goal:: Progressing Goal #3: pt amb in dept with improved heel strike, decreased antalgic gait pattern. Goal to be met by: 12/07/17 Progress towards Goal:: Progressing Goal #4: Decreased edema L ankle equal to R LE Goal to be met by: 12/07/17 Pit Operator Goals Goal #1: Independent with HEP Goal to be met by: 12/28/17 Goal #2: pt rate pain <2 with activity Goal to be met by: 12/28/17 Goal #3: pt amb community distances with no LOB with decreased antalgic gait Goal to be met by: 12/28/17 Goal #4: Improved LE functional scale 40 Goal to be met by: 12/28/17 Plan PLAN OF CARE EXPIRES ON:: 12/28/17 ORDER # VISITS AND/OR THROUGH DATE: 12/28/17 PLAN: Continue for progressive therex
--- NOTE | 2017-11-27 15:51 | RS.OPPTDN ---
Subjective Date of Note: 11/27/17 Visit #: 6 Date of Evaluation: 11/16/17 Payer Source: MEDICARE Treatment Diagnosis: fx fibula, L ankle pain Current Subjective/complaints:: Patient says she overdid it with housecleaning yesterday. She says her daughter will help her later with the larger tasks. She says she left home and forgot her lace up brace today. Interventions - Exercise/Activities/Manual Therapy Exercises/Activities: Patient receives PROM for the L ankle all positions. Continued with manual isometrics 2x5 all dir. Continued with red tband all dir x 10 reps. Patient sits at EOB to work on [employer] board multiple reps mainly focusing on DF/PF. Avoided standing dynamic exercises due to no brace and increased pain from yesterday cleaning. 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 Patient left her brace at home and did not feel comfortable performing dynamic activity without it today. Patient Education: Activity Modification Patient demonstrates compliance with HEP?: Yes Short Term Goals Goal #1: pt rate pain <4 with activity Goal to be met by: 12/07/17 Progress towards Goal:: Progressing Goal #2: Improved L ankle ROM DF to neutral, PF 38, Inversion 20, [id number] Goal to be met by: 12/07/17 Progress towards Goal:: Progressing Goal #3: pt amb in dept with improved heel strike, decreased antalgic gait pattern. Goal to be met by: 12/07/17 Progress towards Goal:: Progressing Goal #4: Decreased edema L ankle equal to R LE Goal to be met by: 12/07/17 Turn Sewer Goals Goal #1: Independent with HEP Goal to be met by: 12/28/17 Goal #2: pt rate pain <2 with activity Goal to be met by: 12/28/17 Goal #3: pt amb community distances with no LOB with decreased antalgic gait Goal to be met by: 12/28/17 Goal #4: Improved LE functional scale 40 Goal to be met by: 12/28/17 Plan PLAN OF CARE EXPIRES ON:: 12/28/17 ORDER # VISITS AND/OR THROUGH DATE: 12/28/17 PLAN: Patient to continue towards progressive exercises.
--- NOTE | 2017-11-30 09:40 | RS.OPPTDN ---
Subjective Date of Note: 11/30/17 Visit #: 7 Date of Evaluation: 11/16/17 Payer Source: MEDICARE Treatment Diagnosis: fx fibula, L ankle pain Current Subjective/complaints:: Patient says her ankle is getting better and wants to attend as much as she can to restore strength, but also does not want to use all of her visits early in the year (per Medicare). She reports she is performing HEP and will return to MD today. Interventions - Exercise/Activities/Manual Therapy Exercises/Activities: Patient receives PROM for the L ankle all positions. Continued with manual isometrics 2x10 all dir. Continued progressive tband to green all dir x 10 reps. SAQ 2# and QS 2x10, bilateral IV with ball 2x10. Patient sits at EOB to work on [employer] [place] board multiple reps mainly focusing on DF/ PF. Standing on green foam pad for weight shifting L to R and A/P, heel raises. Ramírez air pad for step ups leading with the L, weight shift L to R. Thick foam pad for marching and minisquats x 10. Total minutes of Exercise: 38 Manual Therapy: NA HOME EXERCISE PROGRAM: pt given written HEP including: DF, PF, Inversion, Eversion with red theraband, ankle alphabet, towel curls and instructed to Ice L ankle - Charges Timed Code Treatment Minutes: 38 Total Treatment Time: 38 Procedures billed for this date of service:: ex3 Assessment: Patient demo increased stability maintaining good bal switching from progressive foam pads and tbands. She is experiencing less pain and improvesd gait. Patient Education: Body/Joint mechanics, Home Exercise Program, Education of Plan of Care Patient demonstrates compliance with HEP?: Yes Short Term Goals Goal #1: pt rate pain <4 with activity Goal to be met by: 12/07/17 Progress towards Goal:: Met Goal #2: Improved L ankle ROM DF to neutral, PF 38, Inversion 20, [id number] Goal to be met by: 12/07/17 Progress towards Goal:: Partially Met Goal #3: pt amb in dept with improved heel strike, decreased antalgic gait pattern. Goal to be met by: 12/07/17 Progress towards Goal:: Partially Met Goal #4: Decreased edema L ankle equal to R LE Goal to be met by: 12/07/17 Progress towards Goal:: Progressing Correction Goals Goal #1: Independent with HEP Goal to be met by: 12/28/17 Progress towards goal: Progressing Goal #2: pt rate pain <2 with activity Goal to be met by: 12/28/17 Goal #3: pt amb community distances with no LOB with decreased antalgic gait Goal to be met by: 12/28/17 Goal #4: Improved LE functional scale 40 Goal to be met by: 12/28/17 Plan PLAN OF CARE EXPIRES ON:: 12/28/17 ORDER # VISITS AND/OR THROUGH DATE: 12/28/17 PLAN: Patient has one week remaining. Patient to attend follow up with MD today.
--- NOTE | 2017-12-02 14:28 | RS.OPPTDN ---
Subjective Date of Note: 12/02/17 Visit #: 8 Date of Evaluation: 11/16/17 Payer Source: MEDICARE Treatment Diagnosis: fx fibula, L ankle pain Current Subjective/complaints:: Patient says she attended follow up yesterday with her MD and she is scheduled for an MRI 12/08/17. She admits improved pain level, strength, and swelling. She says she just has a little tenderness to the medial malleoli region. She does say she is able to go up/down her 4 stairs with 1 handrail. - Treatment Modality: Electrical Stim Unattended Parameters/Method Applied: 15 mins hivolt @ 180 pk volts cross current to the L foot after therex Patient Position: Supine - Heat/Cryotherapy Treatment: Cryotherapy Interventions - Exercise/Activities/Manual Therapy Exercises/Activities: Patient receives PROM for the L ankle all positions. Continued with manual isometrics 2x10 all dir. Continued progressive tband to green all dir x 10 reps. SAQ 2# and QS 2x10, bilateral IV with ball 2x10. ESTIM and CRYOTHERAPY after therex. GIRTH measurements taken. Total minutes of Exercise: 34 Manual Therapy: NA HOME EXERCISE PROGRAM: pt given written HEP including: DF, PF, Inversion, Eversion with red theraband, ankle alphabet, towel curls and instructed to Ice L ankle - Charges Timed Code Treatment Minutes: 34 Total Treatment Time: 49 Procedures billed for this date of service:: cp, estim (un), ex2 Assessment: Patient advancing with decreased ankle pain and more mobility as well as reduced swelling. Patient demo ~1 cm less at the ankle joint compared to eval date and .5cm at the forefoot. Patient Education: Body/Joint mechanics, Home Exercise Program, Education of Plan of Care Patient demonstrates compliance with HEP?: Yes Short Term Goals Goal #1: pt rate pain <4 with activity Goal to be met by: 12/07/17 Progress towards Goal:: Met Goal #2: Improved L ankle ROM DF to neutral, PF 38, Inversion 20, [id number] Goal to be met by: 12/07/17 Progress towards Goal:: Partially Met Comments:: Patient has met the DF goal and progressing with all others Goal #3: pt amb in dept with improved heel strike, decreased antalgic gait pattern. Goal to be met by: 12/07/17 Progress towards Goal:: Partially Met Goal #4: Decreased edema L ankle equal to R LE Goal to be met by: 12/07/17 Progress towards Goal:: Progressing Business Support Specialist Goals Goal #1: Independent with HEP Goal to be met by: 12/28/17 Progress towards goal: Progressing Goal #2: pt rate pain <2 with activity Goal to be met by: 12/28/17 Goal #3: pt amb community distances with no LOB with decreased antalgic gait Goal to be met by: 12/28/17 Goal #4: Improved LE functional scale 40 Goal to be met by: 12/28/17 Plan PLAN OF CARE EXPIRES ON:: 12/28/17 ORDER # VISITS AND/OR THROUGH DATE: 12/28/17 PLAN: Patient to continue TIW and follow up with 12/08/17 for MRI
--- NOTE | 2017-12-07 10:48 | RS.OPPTDN ---
Subjective Date of Note: 12/07/17 Visit #: 10 Date of Evaluation: 11/16/17 Payer Source: MEDICARE Treatment Diagnosis: fx fibula, L ankle pain Current Subjective/complaints:: Patient says she was able to clean curtains and perform house cleaning over the weekend with her with less pain than anticipated. She says swelling did not elevate and pain remained mild. She admits adding estim has seemed to help more in the past few visits. - Treatment Modality: Electrical Stim Unattended Parameters/Method Applied: hivolt 4 small pads @ 185-205 pk volts x 15 mins after therex to the L foot Patient Position: Supine - Heat/Cryotherapy Treatment: Cryotherapy Interventions - Exercise/Activities/Manual Therapy Exercises/Activities: Patient receives PROM for the L ankle all positions. Continued with manual isometrics 2x10 all dir. Continued progressive tband to green all dir x 10 reps. SAQ 2# and QS 2x10, bilateral IV with ball, SLR (no weight) 2x10. Initiated stationary bike x 3 mins for, 1 min retro. ESTIM and CRYOTHERAPY after therex. 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 LE functional Scale score based upon reports and presentation demo 29/80 or 64% impairment now, which is improved from eval at 21/80 or 74%. Patient Education: Body/Joint mechanics, Education of Plan of Care Patient demonstrates compliance with HEP?: Yes Short Term Goals Goal #1: pt rate pain <4 with activity Goal to be met by: 12/07/17 Progress towards Goal:: Met Goal #2: Improved L ankle ROM DF to neutral, PF 38, Inversion 20, [id number] Goal to be met by: 12/07/17 Progress towards Goal:: Partially Met Goal #3: pt amb in dept with improved heel strike, decreased antalgic gait pattern. Goal to be met by: 12/07/17 Progress towards Goal:: Met Goal #4: Decreased edema L ankle equal to R LE Goal to be met by: 12/07/17 Progress towards Goal:: Partially Met Metal Finish Inspector Goals Goal #1: Independent with HEP Goal to be met by: 12/28/17 Progress towards goal: Progressing Goal #2: pt rate pain <2 with activity Goal to be met by: 12/28/17 Progress towards goal: Progressing Goal #3: pt amb community distances with no LOB with decreased antalgic gait Goal to be met by: 12/28/17 Progress towards goal: Progressing Goal #4: Improved LE functional scale 40 Goal to be met by: 12/28/17 Progress towards goal: Progressing Comments: 29 currently or 64% impairment Plan PLAN OF CARE EXPIRES ON:: 12/28/17 ORDER # VISITS AND/OR THROUGH DATE: 12/28/17 PLAN: Patient has demo improvement per subjective reports and presentation of decreased swelling and increased ROM/strength. She would benefit from continuing therapy through 12/28/17.
--- NOTE | 2017-12-07 10:55 | RS.OPPTDN ---
Subjective Date of Note: 12/07/17 Visit #: 9 Date of Evaluation: 11/16/17 Payer Source: MEDICARE Treatment Diagnosis: fx fibula, L ankle pain Current Subjective/complaints:: Patient says she continues to notice improved mobility and she feels steadier with amb. - Treatment Modality: Electrical Stim Unattended Parameters/Method Applied: hivolt 4 small pads @ 205 pk volts x 20 mins after therex Patient Position: Supine - Heat/Cryotherapy Treatment: Cryotherapy Interventions - Exercise/Activities/Manual Therapy Exercises/Activities: Patient receives PROM for the L ankle all positions. Continued with manual isometrics 2x10 all dir. Continued progressive tband to green all dir x 10 reps. SAQ 2# and QS 2x10, bilateral IV with ball 2x10. SLR 2x10. ESTIM and CRYOTHERAPY after therex. GIRTH measurements taken. Total minutes of Exercise: 30 Manual Therapy: NA HOME EXERCISE PROGRAM: pt given written HEP including: DF, PF, Inversion, Eversion with red theraband, ankle alphabet, towel curls and instructed to Ice L ankle - Charges Timed Code Treatment Minutes: 30 Total Treatment Time: 50 Procedures billed for this date of service:: cp, estim (un), ex2 Assessment: Patient demo improvement with girth measurements by 1 cm at the ankle (malleoli). She verbalizes continued improvement with pain level and strength as well. Patient Education: Home Exercise Program Patient demonstrates compliance with HEP?: Yes Short Term Goals Goal #1: pt rate pain <4 with activity Goal to be met by: 12/07/17 Progress towards Goal:: Met Goal #2: Improved L ankle ROM DF to neutral, PF 38, Inversion 20, [id number] Goal to be met by: 12/07/17 Progress towards Goal:: Partially Met Goal #3: pt amb in dept with improved heel strike, decreased antalgic gait pattern. Goal to be met by: 12/07/17 Progress towards Goal:: Met Goal #4: Decreased edema L ankle equal to R LE Goal to be met by: 12/07/17 Progress towards Goal:: Progressing Dish Maker Goals Goal #1: Independent with HEP Goal to be met by: 12/28/17 Progress towards goal: Progressing Goal #2: pt rate pain <2 with activity Goal to be met by: 12/28/17 Goal #3: pt amb community distances with no LOB with decreased antalgic gait Goal to be met by: 12/28/17 Goal #4: Improved LE functional scale 40 Goal to be met by: 12/28/17 Plan PLAN OF CARE EXPIRES ON:: 12/28/17 ORDER # VISITS AND/OR THROUGH DATE: 12/28/17 PLAN: continue TIW for strength and reduced pain/swelling. She should be reassessed per 10th visit next session.
== END 2017-12-07 23:59 ==
PROVIDERS: ATTEND Podiatrist
DX: S82.832D Other fracture of upper and lower end of left fibula, subsequent encounter for closed fracture with routine healing (principal); M25.472 Effusion, left ankle; M25.572 Pain in left ankle and joints of left foot; G89.29 Other chronic pain

== ENCOUNTER 2017-12-11 15:00 | Outpatient (RCR) ==
--- NOTE | 2017-12-09 15:18 | RS.OPPTDN ---
Subjective Date of Note: 12/09/17 Visit #: 11 Date of Evaluation: 11/16/17 Payer Source: MEDICARE Treatment Diagnosis: fx fibula, L ankle pain Current Subjective/complaints:: Patient says she was walking into the bank with her arms full and her accidentally let the door swing onto the L upper arm. She shows me large area of purple bruising to the medial aspect of the L arm. - Treatment Modality: Electrical Stim Unattended Parameters/Method Applied: hivolt 4 small pads surrounding the L ankle @ 155 and 240 pk volts x 15 mins after therex Patient Position: Supine - Heat/Cryotherapy Treatment: Cryotherapy Interventions - Exercise/Activities/Manual Therapy Exercises/Activities: Patient receives PROM for the L ankle all positions. Continued with manual isometrics 2x10 all dir. Continued progressive tband to blue tband all dir x 10 reps. SAQ 2 1/2# and QS 2x10, bilateral IV with ball 2x10. SLR 2x10. Bilateral SAQ holding ball. Wobble board for DF/PF using 2 1/2 # cuff for resistance as well as IV/EV x 10. Stationary bike x 5 mins. ESTIM and CRYOTHERAPY after therex. Total minutes of Exercise: 33 Manual Therapy: NA HOME EXERCISE PROGRAM: pt given written HEP including: DF, PF, Inversion, Eversion with red theraband, ankle alphabet, towel curls and instructed to Ice L ankle - Charges Timed Code Treatment Minutes: 33 Total Treatment Time: 48 Procedures billed for this date of service:: cp, estim (un), ex2 Assessment: Patient admits she had an accident involving bank door shutting on her L upper arm. She has purple bruising to this area with a palpable knot as well. She is progressing well regarding the L ankle and general strength to the entire L LE. She is amb more steadily and was able to ascend/descend her daughter's 5 steps with some assistance for the first time since her injury. Patient Education: Body/Joint mechanics, Home Safety, Education of Plan of Care Patient demonstrates compliance with HEP?: Yes Short Term Goals Goal #1: pt rate pain <4 with activity Goal to be met by: 12/07/17 Progress towards Goal:: Met Goal #2: Improved L ankle ROM DF to neutral, PF 38, Inversion 20, [id number] Goal to be met by: 12/07/17 Progress towards Goal:: Partially Met (patient has met DF and IV goal) Goal #3: pt amb in dept with improved heel strike, decreased antalgic gait pattern. Goal to be met by: 12/07/17 Progress towards Goal:: Met Goal #4: Decreased edema L ankle equal to R LE Goal to be met by: 12/07/17 Progress towards Goal:: Progressing Long-Term Goals Goal #1: Independent with HEP Goal to be met by: 12/28/17 Progress towards goal: Progressing Goal #2: pt rate pain <2 with activity Goal to be met by: 12/28/17 Goal #3: pt amb community distances with no LOB with decreased antalgic gait Goal to be met by: 12/28/17 Goal #4: Improved LE functional scale 40 Goal to be met by: 12/28/17 Plan PLAN OF CARE EXPIRES ON:: 12/28/17 ORDER # VISITS AND/OR THROUGH DATE: 12/28/17 PLAN: Patient to continue x 1-2 more weeks per order
--- NOTE | 2017-12-11 16:23 | RS.OPPTDN ---
Subjective Date of Note: 12/11/17 Visit #: 12 Date of Evaluation: 11/16/17 Payer Source: MEDICARE Treatment Diagnosis: fx fibula, L ankle pain Current Subjective/complaints:: Patient says she does not have any pain anymore to the foot, but still c/o L upper arm due to recent injury. She says she returns to the [facility] on 12/15/17 to see the ortho. She says she will continue to work on HEP. Interventions - Exercise/Activities/Manual Therapy Exercises/Activities: Patient receives PROM for the L ankle all positions. Continued progressive tband to blue tband all dir x 10 reps. SAQ 2 1/2# and QS 2x10, bilateral IV with ball 2x10. SLR 2x10. Bilateral SAQ holding ball. Wobble board for DF/PF using 2 1/2# cuff for resistance as well as IV/EV x 10. Standing on foam at railing: marching, weight shift L to R and heel raises, minisquats x 10. Forward step ups on step board x 10 with verbal cues for proper sequence. Patient completes reassessment. Total minutes of Exercise: 36 Manual Therapy: NA HOME EXERCISE PROGRAM: pt given written HEP including: DF, PF, Inversion, Eversion with red theraband, ankle alphabet, towel curls and instructed to Ice L ankle - Objective Findings Observations,measurements,etc.: LE Functional Scale: 57/80 or 29% impairment placing her in her goal category. - Charges Timed Code Treatment Minutes: 36 Total Treatment Time: 36 Procedures billed for this date of service:: ex2 Assessment: Patient has met her functional goals and has demo significant progress with swelling and ROM/strength. She is very compliant with HEP at this time and it has progressed to blue tband. Patient Education: Body/Joint mechanics, Home Exercise Program, Home Safety, Education of Plan of Care Patient demonstrates compliance with HEP?: Yes Short Term Goals Goal #1: pt rate pain <4 with activity Goal to be met by: 12/07/17 Progress towards Goal:: Met Goal #2: Improved L ankle ROM DF to neutral, PF 38, Inversion 20, [id number] Goal to be met by: 12/07/17 Progress towards Goal:: Partially Met (patient has met DF and IV goal) Comments:: Patient demo ROM goal for DF, PF, and IV. Eversion is just 2 degrees away Goal #3: pt amb in dept with improved heel strike, decreased antalgic gait pattern. Goal to be met by: 12/07/17 Progress towards Goal:: Met Goal #4: Decreased edema L ankle equal to R LE Goal to be met by: 12/07/17 Progress towards Goal:: Progressing Fpc Goals Goal #1: Independent with HEP Goal to be met by: 12/28/17 Progress towards goal: Met Goal #2: pt rate pain <2 with activity Goal to be met by: 12/28/17 Progress towards goal: Met Goal #3: pt amb community distances with no LOB with decreased antalgic gait Goal to be met by: 12/28/17 Progress towards goal: Met (57 per reassessment today) Goal #4: Improved LE functional scale 40 Goal to be met by: 12/28/17 Progress towards goal: Met Plan PLAN OF CARE EXPIRES ON:: 12/28/17 ORDER # VISITS AND/OR THROUGH DATE: 12/28/17 PLAN: D/c
[2017-12-12 16:41] VITALS: BMI 27.8
--- NOTE | 2017-12-14 09:40 | RS.OPPTDC ---
Date of Discharge: 12/11/17 Date of Evaluation: 11/16/17 Number of Visits: 12 Treatment Diagnosis: fx fibula, L ankle pain Current Level of Function: pt is now able to ascend/descend 5 steps with handrails. pt has improved gait, mobility, and swelling. pt has met g Current Complaints/Gains: pt denies pain at this time and says she is performing HEP consistently. pt states she is returning to normal. Functional Outcome Measure LE Functional Scale: 57 - G Codes & Severity Modifier G Codes & Modifier: mobility dc CJ. mobility goal CJ Source of G Code score: LE functioinal index score Observation - Observation Posture: Forward Head, Rounded Shoulders Gait - Gait Pattern General Gait Pattern Observation: Antalgic Gait Gait Comments: slight antalgic gait Interventions - Exercise/Activities/Manual Therapy Exercises/Activities: n/a Manual Therapy: NA HOME EXERCISE PROGRAM: pt given written HEP including: DF, PF, Inversion, Eversion with red theraband, ankle alphabet, towel curls and instructed to Ice L ankle - Charges Timed Code Treatment Minutes: n/a Total Treatment Time: n/a Procedures billed for this date of service:: n/a Assessment Assessment: pt has met all goals except ROM goal. ROM has improved and is progressing toward goal. Patient Education: Home Exercise Program, Education of Plan of Care Rehab Potential: Good Short Term Goals Goal #1: pt rate pain <4 with activity Goal to be met by: 12/07/17 Progress towards Goal:: Met Goal #2: Improved L ankle ROM DF to neutral, PF 38, Inversion 20, Goal to be met by: 12/07/17 Progress towards Goal:: Partially Met (patient has met DF and IV goal) Goal #3: pt amb in dept with improved heel strike, decreased antalgic gait pattern. 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
== END 2018-01-07 23:59 ==
PROVIDERS: ATTEND Podiatrist
DX: S82.832D Other fracture of upper and lower end of left fibula, subsequent encounter for closed fracture with routine healing (principal); M25.472 Effusion, left ankle; M25.572 Pain in left ankle and joints of left foot; G89.29 Other chronic pain

== ENCOUNTER 2017-12-12 16:34 | Emergency (ER) ==
[2017-12-12 16:41] VITALS: BP 143/84; TEMP 99.2; BMI 27.8
--- NOTE | 2017-12-12 16:57 | ED.PDOC ---
General ED Provider: Dr. RODOLFO GRANADOS Chief Complaint: Shoulder Pain/Injury Stated Complaint: left upper arm injury Time Seen by Physician: 16:55 (blunt trauma by a bank door see photos) Mode of Arrival: Walk-In Information Source: Patient Nursing and Triage Documentation Reviewed and Agree: Yes Reviewed sepsis parameters & appropriate labs ordered?: Yes System Inflammatory Response Syndrome: Not Applicable Sepsis Protocol: For patient's 13 years and over: Temp is 96.8 and below OR 101 and greater Pulse >90 BPM Resp >20/minute Acutely Altered Mental Status Are patient's symptoms suggestive of a new infection, such as: -Pneumonia -Skin, Soft Tissue -Endocarditis -UTI -Bone, Joint Infection -Implantable Device -Acute Abdominal Infection -Wound Infection -Meningitis -Blood Stream Catheter Infection -Unknown System Inflammatory Response Syndrome: Not Applicable Musculoskeletal Complaint Exam - Shoulder Pain Complaint/Exam Mechanism of Injury: Reports: Trauma Onset/Duration: 10 days ago Symptoms Are: Still present Timing: Constant Initial Severity: Mild Current Severity: Mild Location: Reports: Discrete Character: Reports: Aching Alleviating: Reports: Rest Aggravating: Reports: Movement, Lifting, Flexion, Extension, Internal rotation, External rotation, Abduction Associated Signs and Symptoms: Reports: Swelling, Redness, Bruising. Denies: Fever, Weakness, Numbness, Tingling Non-Orthopedic Risk Factors: Reports: None Review of Systems - Review Of Systems Constitutional: Reports: No symptoms Eyes: Reports: No symptoms Ears, Nose, Mouth, Throat: Reports: No symptoms Respiratory: Reports: No symptoms Cardiac: Reports: No symptoms GI: Reports: No symptoms : Reports: No symptoms Musculoskeletal: Reports: Joint pain Skin: Reports: No symptoms Neurological: Reports: No symptoms Endocrine: Reports: No symptoms Hematologic/Lymphatic: Reports: No symptoms All Other Systems: Reviewed and Negative Past Medical History - Past Medical History Previously Healthy: Yes Endocrine: Reports: None Cardiovascular: Reports: None Respiratory: Reports: None Hematological: Reports: None Gastrointestinal: Reports: None Genitourinary: Reports: None Neuro/Psych: Reports: None (on plavix), TIA Musculoskeletal: Reports: None Cancer: Reports: None Last Menstrual Period: menopause - Surgical History General Surgical History: Reports: None - Family History Family History: Reports: None - Social History Smoking Status: Never smoker Hx Substance Use: No Alcohol Screening: None Physical Exam - Physical Exam Appearance: Well-appearing, No pain distress, Well-nourished Eyes: GLORIA, EOMI, Conjunctiva clear ENT: Ears normal, Nose normal, Oropharynx normal Respiratory: Airway patent, Breath sounds clear, Breath sounds equal, Respirations nonlabored Cardiovascular: RRR, Pulses normal, No rub, No murmur GI/: Soft, Nontender, No masses, Bowel sounds normal, No Organomegaly Musculoskeletal: Limited ROM (brusing and edema as noted by the photos ) Skin: Warm, Dry, Normal color Neurological: Sensation intact, Motor intact, Reflexes intact, Cranial nerves intact, Alert, Oriented Psychiatric: Affect appropriate, Mood appropriate Critical Care Note - Critical Care Note Total Time (mins): 0 Course - Course Orders, Labs, Meds: Orders Category Date Time Status HUMERUS, LEFT 2VIEWS Stat RADS 12/12/17 16:54 Completed Vital Signs: Temp Pulse Resp BP Pulse Ox 12/12/17 16:34 99.2 F 68 16 143/84 H 94 L Departure - Departure Time of Disposition: 18:00 Disposition: HOME SELF-CARE Discharge Problem: Hematoma Instructions: Hematoma (ED) Condition: Good Pt referred to PMD for follow-up: Yes IPMP verified?: No Additional Instructions: Please call your Family Physician as soon as possible to schedule a follow-up appointment. Prescriptions: Hydrocodone/Acetaminophen [Adrian 5-325 Tablet] 1 each PO Q6HR PRN #12 tablet PRN Reason: PAIN Allergies/Adverse Reactions: Allergies Sulfa (Sulfonamide Antibiotics) Adverse Reaction (Verified 12/12/17 16:43) Home Medications: Ambulatory Orders Ascorbate Calcium [Vitamin C] 500 mg PO DAILY 12/12/17 Azelastine HCl 137 mcg NS DAILY PRN 12/12/17 Calcium Carb, Citrate/Vit D3 [Calcium + D3 ER Tablet] 1 each PO BID 12/12/17 Celecoxib 100 mg PO BID 12/12/17 Clopidogrel Bisulfate [Plavix] 75 mg PO DAILY 12/12/17 Fexofenadine HCl 60 mg PO BID 12/12/17 Gabapentin 100 mg PO BID 12/12/17 Hydrocodone/Acetaminophen [Hydrocodon-Acetaminophen 5-325] 1 each PO DIRECTED PRN 12/12/17 Hydrocodone/Acetaminophen [Adrian 5-325 Tablet] 1 each PO Q6HR PRN #12 tablet 12/25 Levothyroxine Sodium 150 mcg PO DAILY 12/12/17 Lorazepam 0.5 mg PO DIRECTED PRN 12/12/17 Lovastatin 60 mg PO DAILY 12/12/17 Melatonin/Pyridoxine HCl (B6) [Melatonin 3 mg Tablet] 3 mg PO BEDTIME 12/12/17 Methocarbamol [Robaxin] 500 mg PO DIRECTED 12/12/17 Montelukast Sodium [Singulair] 10 mg PO BEDTIME 12/12/17 Multivitamin [Multi-Vitamin Daily] 1 each PO DAILY 12/12/17 [place]-3/Dha/Epa/Fish Oil [Fish Oil 1,000 mg Softgel] 1 each PO TID 12/12/17 Propranolol HCl 20 mg PO BID 12/12/17 Ranitidine HCl 300 mg PO DAILY 12/12/17 Disposition Discussed With: Patient
--- NOTE | 2017-12-12 17:43 | DI ---
EXAM: Two views of the left humerus. HISTORY: Trauma with pain. Hematoma. FINDINGS: The left humerus is intact with no evidence of fracture. The joint spaces are maintained. There are degenerative changes in the left humeral head. No soft tissue abnormality. Impression: No evidence of fracture. Degenerative changes as described.
== END 2017-12-12 18:00 | disposition home or self-care (01) ==
LOC: ED 16:34
DX: S40.022A Contusion of left upper arm, initial encounter (principal); W22.8XXA Striking against or struck by other objects, initial encounter
CPT/HCPCS: 99283